=== PATIENT | male | born 1975 | race Caucasian/White ===

== ENCOUNTER 2021-09-06 10:12 | Emergency (ER) | payer BC, SELFPAY ==
--- NOTE | ~2021-09-06 | XR_ITS ---
EXAMINATION: XR chest 2V DATE: 09/06/2021 12:07 INDICATION: Mid chest pain. TECHNIQUE: Frontal and lateral views of the chest were obtained. COMPARISON: None. FINDINGS: There is a 9 mm nodule in right midlung zone. No pleural effusion or pneumothorax. The hear t size is normal. There is mild chronic anterior wedging of a midthoracic vertebral body. IMPRESSION: 1. 9 mm pulmonary nodule suspicious for malignancy. Noncontrast chest CT is recommended. Reviewed, dictated and finalized at location B. IMPRESSION: 1. 9 mm pulmonary nodule suspicious for malignancy. Noncontrast chest CT is rec ommended.
--- NOTE | ~2021-09-06 | CT_ITS ---
EXAMINATION:CT diagnostic chest wo con DATE: 09/06/2021 12:33 INDICATION: Lung nodule. TECHNIQUE: Computed tomography (CT) of the chest was performed without intravenous contrast. Automate d exposure control and iterative reconstruction technique were employed. The dose-length product (DLP ) was 266.46 mGy-cm. COMPARISON: Chest 2 views 09/06/2021 FINDINGS: There is mild emphysema. Calcified bilateral lung nodules and calcified hilar lymph nodes a re consistent with old granulomatous disease. One of the calcified right lung nodules correlates with the chest radiograph abnormality. There is a 6 mm nodule in lingula. There is a 7 mm nodule in left lower lobe. No pleural effusion. The heart size is normal. There are coronary artery calcifications. No pericardial effusion. There is bilateral gynecomastia. There is mild chronic anterior wedging of m ultiple midthoracic vertebral bodies. There is mild thoracic spondylosis. IMPRESSION: 1. Pulmonary nodules measuring up to 7 mm, probably benign. Noncontrast low-dose chest CT is recommen ded in 6 months. Reviewed, dictated and finalized at location B. IMPRESSION: 1. Pulmonary nodules measuring up to 7 mm, probably benign. Noncontrast low-dos e chest CT is recommended in 6 months.
[2021-09-06 11:07] VITALS: BP 164/105; PULSE 86; RESP 12; TEMP 36.8; O2SAT 100
--- NOTE | 2021-09-06 11:24 | ED.GENADULT ---
HPI - General Adult General Chief complaint: Weakness Stated complaint: disoriented/sweating Time Seen by Provider: 09/06/21 11:10 History of Present Illness HPI narrative: Patient is a healthy 45-year-old male here for evaluation of multiple medical complaints. Patient states over the past 2 days, he has felt congested in addition to experiencing diarrhea and subjective fevers. Patient states he has had about 5 episodes of nonbloody diarrhea per day. His symptoms came on after he was exposed to somebody at work with gastroenteritis. Denies nausea, vomiting, recent antibiotic use, recent travel. He has not taken his temperature. He is a smoker and has a chronic cough, denies more than usual, shortness of breath, chest pain or leg swelling. Related Data Allergies Allergy/AdvReac Type Severity Reaction Status Date / Time No Known Allergies Allergy Verified 09/06/21 11:30 Review of Systems Review of Systems: Gen: Reports chills Eyes: Denies eye pain or visual change ENT: Reports congestion Respiratory: Reports chronic cough. Denies shortness of breath CV: Denies chest pain or palpitations GI: Reports diarrhea. Denies abdominal pain nausea, emesis or diarrhea : denies burning, urgency, frequency or hematuria Musculoskeletal: Denies back pain or muscle pain Neuro: Denies numbness, tingling, weakness or focal weakness Skin: Denies rash Except as documented, all other systems reviewed and negative Exam Narrative: APPEARANCE: Well appearing, no pain in distress, well-nourished. Head: normocephalic and atraumatic. EYES: PERRLA/EOMI, conjunctivae clear NOSE: No nasal drainage EARS: External ear normal in appearance THROAT: Oropharynx is clear. Mucous membranes are moist. NECK: Supple. No adenopathy, no masses. RESPIRATORY: Rales on respiratory exam. Airway patent, respirations nonlabored CARDIOVASCULAR: Regular rate and rhythm without murmurs, rubs, or gallops. ABDOMINAL: Moderately tender in epigastrium. Normoactive bowel sounds. Soft, nondistended. No rebound tenderness or guarding. MUSCULOSKELETAL: Extremities are warm and well-perfused. Moves all extremities well. No edema. NEURO: Normal speech. No focal neurologic deficits. SKIN: Skin is warm and dry. No rashes. PSYCHIATRIC: Normal affect/mood. Course Vital Signs Vital signs: Vital Signs Temperature 36.8 C 09/06/21 11:07 Pulse Rate 86 09/06/21 11:07 Respiratory Rate 12 09/06/21 11:07 Blood Pressure 164/105 H 09/06/21 11:07 Pulse Oximetry 100 09/06/21 11:07 Oxygen Delivery Room Air 09/06/21 11:07 Temperature 36.8 C 09/06/21 11:07 Pulse Rate 65 09/06/21 13:18 Respiratory Rate 13 09/06/21 13:18 Blood Pressure 138/80 09/06/21 13:18 Pulse Oximetry 100 09/06/21 13:18 Oxygen Delivery Room Air 09/06/21 11:07 Medical Decision Making MDM Narrative Medical decision making narrative: 45-year-old male here for evaluation of congestion, diarrhea, and feeling fatigued with subjective fevers. Patient's vital signs are normal, he has rales on respiratory exam, abdomen is soft without peritoneal signs. Patient tested positive for COVID, which likely explains his symptoms. Chest x-ray detected a lung nodule that required follow-up with a CT, which did show multiple lung nodules that will require outpatient follow-up in 6 months. He was hydrated with lactated Ringer's and updated on findings. He has close follow-up with his primary care doctor, I provided him with a copy of the report describing the lung nodules and recommended surveillance time. He agrees to follow-up with his primary for these findings. Discussed return precautions with patient, he voiced understanding. Vital Signs Vital Signs: Vital Signs Temperature 36.8 C 09/06/21 11:07 Pulse Rate 86 09/06/21 11:07 Respiratory Rate 12 09/06/21 11:07 Blood Pressure 164/105 H 09/06/21 11:07 Pulse Oximetry 100 09/06/21 11:07 Oxygen Delivery Room Air 09/06
[2021-09-06] MEDS: LACTATED RINGERS 1,000 ML 999 ML IV CONT (11:39)
[2021-09-06 11:44] VITALS: PULSE 70
[2021-09-06 11:49] LABS: Basophils Percent Auto 0.3 % (0.2-1.2); Hematocrit 47.9 % (42.0-52.0); Immature Granulocyte Absolute 0.02 K/mm3 (0.00-0.031); Immature Granulocyte Percent A 0.3 % (0-0.5); Lymphocytes Absolute Auto 1.33 K/mm3 (0.9-3.2); Lymphocytes Percent Auto 19.5 % (18.3-44.2); Mean Corpuscular HGB Conc 35.5 g/dl (32-36); Mean Corpuscular Hemoglobin 31.2 pg (26-34); Mean Corpuscular Volume 87.9 fl (80-100); Mean Platelet Volume 9.2 fl (7.4-10.4); Monocytes Absolute Auto 0.9 K/mm3 (0.1-0.6); Monocytes Percent Auto 13.3 % (2.6-8.5); Neutrophils Absolute Auto 4.6 K/mm3 (1.3-6.7); Neutrophils Percent Auto 66.6 % (45.5-73.1); Platelet Count Result 262 k/mm3 (150-375); Red Blood Count 5.45 M/mm3 (4.6-6.20); Red Cell Distribution Width 13.2 % (11.5-14.5); White Blood Count 6.8 K/mm3 (4.5-10.0)
[2021-09-06 11:59] LABS: Alanine Aminotransferase 15 U/L (6-50); Albumin Level 4.9 g/dL (3.5-5.1); Alkaline Phosphatase 94 U/L (38-126); Anion Gap 11 mmol/L (8-16); Aspartate Amino Transferase 22 U/L (17-59); Bilirubin,Total 0.3 mg/dL (0.2-1.3); Blood Urea Nitrogen 19 mg/dL (9-20); Calcium 8.7 mg/dL (8.4-10.2); Carbon Dioxide 24 mmol/L (22-30); Chloride 103 mmol/L (98-107); Estimated CRCL calculation 83 ml/min; Estimated Glomerular Filt Rate 60; Glucose 113 mg/dL (65-110); Lipase 92 U/L (23-300); Potassium 3.9 mmol/L (3.4-5.0); Sodium 138 mmol/L (137-145)
[2021-09-06 12:23] LABS: SARS-CoV-2 RNA PCR Positive
[2021-09-06 12:37] VITALS: BP 144/100; PULSE 74; RESP 17; O2SAT 100
[2021-09-06 13:18] VITALS: BP 138/80; PULSE 65; RESP 13; O2SAT 100
== END 2021-09-06 13:19 | disposition home or self-care (01) ==
PROVIDERS: Physician Assistant; Emergency Provider Emergency Medicine
DX: U07.1 COVID-19 (principal); R91.1 Solitary pulmonary nodule
CPT/HCPCS: 36415; 71046; 71250; 80053; 83690; 85025; 96360; 99284; C9803; J7120; U0003; U0005